=== PATIENT | female | born 1980 | race Caucasian/White ===

== ENCOUNTER → 2017-09-02 | Outpatient (CLI) | payer BC | LOC: WSo 11:41 | PROVIDERS: ATTEND Obstetrics & Gynecology | DX: Z31.82 Encounter for Rh incompatibility status (principal) | CPT/HCPCS: 96372 ==

== ENCOUNTER → 2017-11-08 | Outpatient (CLI) | payer BC | LOC: WSo 08:35 | PROVIDERS: ATTEND Obstetrics & Gynecology | DX: Z31.82 Encounter for Rh incompatibility status (principal) | CPT/HCPCS: 96372 ==

== ENCOUNTER 2018-01-05 11:02 | Inpatient (IN) | payer BC ==
[2018-01-05] VITALS (37 sets, daily range): BP systolic 109–130; BP diastolic 55–72
[~2018-01-05] VITALS: Ht 170.2 cm; Wt 92.1 kg
[2018-01-05] MEDS ORDERED: MINERAL OIL CONCENTRATE 99.9% 15 ML UDC TOP PRN (11:15)
[2018-01-05] MEDS: D5 LR IV SOLUTION 1,000 ML IV SCH ×2 (12:10→18:35)
--- OUTSIDE RECORDS SUMMARY | 2018-01-05 12:17 | XMS REPORT ---
Author Author AJIT PABLO Organization [facility] Address [address] [place] [address] Care Team Providers Care [employer] Name Role Phone AJIT PABLO Unavailable PROBLEMS Type Condition ICD9-CM Code ZQH85-DD Code Onset Dates Condition Status SNOMED Code Problem Pain in joint, lower leg 719.46 Active 470133532 ALLERGIES Substance Reaction Event Type Date Status Macrobid Unknown Drug Allergy Mar, Active SOCIAL HISTORY Never Assessed PLAN OF CARE Activity Details Follow Up TE- #15 Reason: VITAL SIGNS MEDICATIONS Medication Instructions Dosage Frequency Start Date End Date Duration Status Booker 5-325 MG Orally every 6 hours 1 tablet as needed 6h Mar, 3 days Active Amoxicillin Active Amoxicillin 500 MG Orally every 8 hrs 1 capsule 8h Mar, 10 day( s) Active RESULTS No Results PROCEDURES Procedure Date Ordered Result Body Site LTD ORAL EVALUATION - PROBLEM FOCUS Apr 02, 2016 INTRAORL-PERIAPICAL 1 FILM [id number] Apr 02, 2016 IMMUNIZATIONS No Known Immunizations
--- OUTSIDE RECORDS SUMMARY | 2018-01-05 12:17 | XMS REPORT ---
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 Name Role Phone ORLANDO COWAN Unavailable PROBLEMS Type Condition ICD9-CM Code [id number] Code Onset Dates Condition Status SNOMED Code Problem Pain in joint, lower leg 719.46 Active 458522225 ALLERGIES Substance Reaction Event Type Date Status Macrobid Unknown Drug Allergy Nov, Active ENCOUNTERS Encounter Location Date Diagnosis [facility] [id number] [place] [phone] Jan, Hordeolum externum of right upper eyelid H00.011 [facility] [id number] [place] [address] [phone] Nov, Subacute frontal sinusitis J01.10 and Spasmodic cough R05 [facility] [id number] [place] [address] [phone] Mar, Dental caries K02.9 [facility] [id number] [place] [address] [phone] Mar, Dental examination Z01.20 [facility] [id number] [place] [phone] May, [facility] [id number] [place] [phone] Dec, [facility] [id number] [place] [phone] Dec, IMMUNIZATIONS No Known Immunizations SOCIAL HISTORY Never Assessed REASON FOR VISIT Pt c/o sinus congestion, drainage [place] PLAN OF CARE Activity Details Follow Up prn Reason: VITAL SIGNS Height 67.75 in 2016-12-17 Weight 216.6 lbs 2016-12-17 Temperature 98.3 degrees Fahrenheit 2016-12-17 Heart Rate 90 bpm 2016-12-17 Respiratory Rate 16 2016-12-17 BMI 33.17 kg/m2 2016-12-17 Blood pressure systolic 142 mmHg 2016-12-17 Blood pressure diastolic 80 mmHg 2016-12-17 MEDICATIONS Medication Instructions Dosage Frequency Start Date End Date Duration Status Zithromax Z-Gerber 250 MG Orally Once a day 2 tablets on the first day, then 1 tablet daily for 4 days 24h Nov, Nov, 5 day(s) Active PredniSONE 10 mg Orally Once a day 1 tablet 24h Nov, Nov, 05 days Active RESULTS No Results PROCEDURES No Known procedures INSTRUCTIONS MEDICATIONS ADMINISTERED No Known Medications
--- OUTSIDE RECORDS SUMMARY | 2018-01-05 12:17 | XMS REPORT ---
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 Name Role Phone ELEUTERIO MARCELA Unavailable PROBLEMS Type Condition ICD9-CM Code XLA31-MD Code Onset Dates Condition Status SNOMED Code Problem Pain in joint, lower leg 719.46 Active [id number] ALLERGIES Substance Reaction Event Type Date Status Macrobid Unknown Drug Allergy Jan, Active ENCOUNTERS Encounter Location Date Diagnosis [facility] [address] [place] [phone] Jan, Hordeolum externum of right upper eyelid H00.011 [facility] [id number] [place] [phone] Nov, Subacute frontal sinusitis J01.10 and Spasmodic cough R05 [facility] [id number] [place] [phone] Mar, Dental caries K02.9 [facility] [id number] [place] [phone] Mar, Dental examination Z01.20 [facility] [address] [place] [address] [phone] May, [facility] [address] [id number] [phone] Dec, [facility] [id number] [place] [address] [phone] Dec, IMMUNIZATIONS No Known Immunizations SOCIAL HISTORY Never Assessed REASON FOR VISIT reports sty in her eye for 2 days. put heat on her right eye last noc...reports its worse now. red and swollen...slight pain...not bad. [email or web address] PLAN OF CARE Activity Details Follow Up prn Reason: VITAL SIGNS Height 67.75 in 2017-01-23 Weight 215.2 lbs 2017-01-23 Temperature 98.0 degrees Fahrenheit 2017-01-23 Heart Rate 84 bpm 2017-01-23 Respiratory Rate 20 2017-01-23 BMI 32.96 kg/m2 2017-01-23 Blood pressure systolic 136 mmHg 2017-01-23 Blood pressure diastolic 80 mmHg 2017-01-23 MEDICATIONS Medication Instructions Dosage Frequency Start Date End Date Duration Status Multi Vitamin - Orally Once a day 1 tablet 24h Active RESULTS No Results PROCEDURES No Known procedures INSTRUCTIONS MEDICATIONS ADMINISTERED No Known Medications
--- OUTSIDE RECORDS SUMMARY | 2018-01-05 12:17 | XMS REPORT ---
Author Author AJIT PABLO Organization [facility] Address [address] [place] [address] Care Team Providers Care Imaging Services Director Name Role Phone AJIT PABLO Unavailable PROBLEMS Type Condition ICD9-CM Code PCF96-NR Code Onset Dates Condition Status SNOMED Code Problem Pain in joint, lower leg 719.46 Active 716425001 ALLERGIES Substance Reaction Event Type Date Status Macrobid Unknown Drug Allergy Mar, Active SOCIAL HISTORY Never Assessed PLAN OF CARE Activity Details Follow Up prn Reason:Exam/radiographs VITAL SIGNS Blood pressure systolic 137 mmHg 2016-04-11 Blood pressure diastolic 91 mmHg 2016-04-11 MEDICATIONS Medication Instructions Dosage Frequency Start Date End Date Duration Status [place] 7.5-325 MG Orally every 6 hrs 1 tablet as needed 6h Mar, Mar, 4 days Active Amoxicillin 500 MG Orally every 8 hrs 1 capsule 8h Mar, Mar, 7 days Active Metronidazole 500 MG Orally Twice a day 1 tablet 12h Mar, Mar, 5 days Active RESULTS No Results PROCEDURES Procedure Date Ordered Result Body Site SURG REMOVAL ERUPTED TOOTH Apr 11, 2016 IMMUNIZATIONS No Known Immunizations
--- OUTSIDE RECORDS SUMMARY | 2018-01-05 12:18 | XMS REPORT | Continuity of Care Document ---
Author Author [facility] Address Unknown Phone Unavailable Allergies Active Description Code Type Severity Reaction Onset Reported/Identified Relationship to Patient Clinical Status Yes No Known Drug Allergies [id number] Drug Allergy Unknown N/A 01/05/2018 Medications There is no data. Problems Date Dx Coded Attending Type Code Diagnosis Diagnosed By 09/03/2017 JAQUELINE GODDARD MD, Ot Z31.82 ENCOUNTER FOR RH INCOMPATIBILITY STATUS 09/16/2017 JAQUELINE GODDARD MD, Ot Z31.82 ENCOUNTER FOR RH INCOMPATIBILITY STATUS 10/23/2017 JAQUELINE GODDARD MD, Ot Z31.82 ENCOUNTER FOR RH INCOMPATIBILITY STATUS 11/10/2017 JAQUELINE GODDARD MD, Ot Z31.82 ENCOUNTER FOR RH INCOMPATIBILITY STATUS 11/25/2017 JAQUELINE GODDARD MD, Ot Z31.82 ENCOUNTER FOR RH INCOMPATIBILITY STATUS 12/23/2017 JAQUELINE GODDARD MD, Ot Z31.82 ENCOUNTER FOR RH INCOMPATIBILITY STATUS Procedures There is no data. Results Test Result Range RH IMMUNE GLOBULIN RHOPHYLAC - 09/02/17 12:09 RH IMMUNE GLOBULIN RHOPHYLAC PRSMD TRFSD 09/02/17 1225 NRG [id number] - 09/02/17 12:09 [id number] 300ug NRG Lot number - 09/02/17 12:09 Lot number [id number] NRG cell screen - 09/02/17 12:09 cell screen 02/09/19 NRG RH IMMUNE GLOBULIN RHOPHYLAC - 11/08/17 08:50 RH IMMUNE GLOBULIN RHOPHYLAC PRSMD TRFSD 11/08/17 0909 NRG [id number] - 11/08/17 08:50 [id number] 300ug NRG Lot number - 11/08/17 08:50 Lot number [id number] NRG cell screen - 11/08/17 08:50 cell screen 12/12/19 NRG Encounters ACCT No. Visit Date/Time Discharge Status Pt. Type Provider Facility Loc./Unit Complaint [id number] 10/02/2014 21:33:50 10/02/2014 23:59:59 CLS Outpatient Gary Finn [id number] 01/23/2017 09:50:00 01/23/2017 23:59:59 CLS Outpatient BRIAN KNOWLES APRN [facility] [id number] 11/08/2017 08:35:00 11/08/2017 23:59:59 CLS Outpatient JAQUELINE GODDARD MD [facility] RH NEGATIVE [id number] 09/02/2017 11:41:00 09/02/2017 23:59:59 CLS Outpatient JAQUELINE GODDARD MD [facility] RH NEGATIVE [id number] 01/05/2018 11:02:00 ACT Inpatient JAQUELINE GODDARD MD [facility] LDRP LABOR
[2018-01-05 12:26] LABS: BASOPHILS % (AUTO) 0 % (0-10); EOSINOPHILS % (AUTO) 0 % (0-10); HEMATOCRIT 34 % (35-52); HEMOGLOBIN 11.4 G/DL (11.5-16.0); LYMPHOCYTES # (AUTO) 2.1 X 10^3 (1.0-4.0); LYMPHOCYTES % (AUTO) 20 % (12-44); MEAN CORPUSCULAR HEMOGLOBIN 31 PG (25-34); MEAN CORPUSCULAR HGB CONC 34 G/DL (32-36); MEAN CORPUSCULAR VOLUME 90 FL (80-99); MEAN PLATELET VOLUME 12.9 FL (7.4-10.4); MONOCYTES # (AUTO) 0.5 X 10^3 (0.0-1.0); MONOCYTES % (AUTO) 5 % (0-12); NEUTROPHILS # (AUTO) 7.5 X 10^3 (1.8-7.8); NEUTROPHILS % (AUTO) 74 % (42-75); PLATELET COUNT 130 10^3/uL (130-400); RED BLOOD COUNT 3.73 10^6/uL (4.35-5.85); RED CELL DISTRIBUTION WIDTH 13.8 % (10.0-14.5); WHITE BLOOD COUNT 10.1 10^3/uL (4.3-11.0)
[2018-01-05] MEDS ORDERED: BUPIVACAINE 0.25% 30 ML (SENSORCAINE) VIAL ONE (12:40)
[2018-01-05] MEDS ORDERED: fentaNYL INJECTION 100 MCG/2 ML AMP ONE (12:40)
[2018-01-05] MEDS ORDERED: LIDOCAINE PF 2% 5 ML (XYLOCAINE) VIAL ONE (12:40)
--- NOTE | 2018-01-05 12:40 | History & Physical ---
History and Physical Date Seen by Provider: Jan 05, 2018 Time Seen by Provider: 12:34 This patient is a 37-year-old G2 and white female with a due date of complaining her now at 3717 weeks gestation. She was seen on this date in clinic with complaint of contractions pain and pressure. She was seen yesterday and had a platelet count of 126,000. She has historically had low platelet count. She reports that her platelet count typically dropped precipitously at the end of her . She had an abnormal tetra test with the DSR of 1/192. Amniocentesis was performed with findings of 46 XX. Patient understands that she is at increased risk for complications overall because of her advanced maternal age. She is Rh- and ahead of the serosa exam at around 28 weeks gestation. She feels like she may be leaking fluid. GBS culture done on December 22, 2018 was negative. Physical profile on this date at a value of 5 out of 8 with 0 for breathing movement and 1 for motion. She also has an SHERRELL of 72. She is sent to labor and delivery from my office for labor induction and delivery. Allergies are to Macrobid which causes a rash Medications are vitamins Past medical history, past surgical history, obstetric history, family history, social history operative record HEENT exam is normal Neck supple with no lymphadenopathy in the thyromegaly Abdomen gravid soft nontender nondistended Extremities show no clubbing or cyanosis. There is no Homans sign. Pelvic exam reveals a somewhat gaping introitus with a cervix that is recently dilated more than 50 percent effaced and the vertex at the 0 to -1 station vertex with uncertain intact membranes. Amniotomy was performed with release of a small amount of fluid. Laboratory Tests 01/05/18 11:45 Assessment and plan term at 37 1 6/7 weeks' gestation in a patient with advanced maternal age, abnormal tetra test result with an increased DSR, normal amniocentesis 46 XX, oligohydramnios, suspicious testing with biophysical profile of 5/8, possible leaking of amniotic fluid, and with thrombocytopenia. Patient is admitted she will have an epidural shortly. Plan induction with Pitocin. Amniotomy has been performed. We anticipate a vaginal 37 week with oligohydramnios abnormal tetra test advanced maternal age and thrombocytopenia Allergies and Home Medications Allergies Coded Allergies: No Known Drug Allergies (Unverified , 01/05/18) Patient Home Medication List Home Medication List Reviewed: Yes JAQUELINE GODDARD MD Jan 05, 2018 12:40 pm
[2018-01-05] MEDS ORDERED: OXYTOCIN/NORMAL SALINE 500 ML IV SCH ×2 (12:41→19:35)
[2018-01-05] MEDS ORDERED: OXYTOCIN/NORMAL SALINE 500 ML IV ONE (12:43)
[2018-01-05] MEDS ORDERED: SUFENTA 0.6MCG/ML BUPIVA 0.125 100 ML ONE (12:43)
[2018-01-05] MEDS ORDERED: LIDOCAINE/EPI 2% 1:200,00 (XYLOCAINE) 10 ML VIAL ONE (12:43)
[2018-01-05] MEDS ORDERED: IBUP-1780 PO (12:46)
[2018-01-05] MEDS ORDERED: DOCU-143 PO (12:46)
[2018-01-05] MEDS ORDERED: OXYC1TAB87 PO (12:46)
--- NOTE | 2018-01-05 12:49 | Discharge Instructions ---
Discharge Instructions Discharge Medications New, Converted or Re-Newed RX: RX on Chart Patient Instructions Patient Instructions: As directed Return to The Hospital For: As directed Activity & Diet Discharge Diet: No Restrictions Activity as Tolerated: No Orders-Post D/C & Referrals Follow Up Appt: Call to make follow up appt. for patient in 4 weeks. Activity Per routine post vaginal delivery instructions. Diet as tolerated Patient may shower or tub bathe as desired. JAQUELINE GODDARD MD Jan 05, 2018 12:49 pm
[2018-01-05] MEDS ORDERED: LACTATED RINGERS 1,000 ML IV ONE (13:39)
[2018-01-05] MEDS ORDERED: CATHETER FLUSH 10 ML SYR IV PRN (13:45)
[2018-01-05] MEDS ORDERED: EPIDURAL (SUFENTA 0.6MCG/ML BUPIVA 0.125%) 100 ML BAG EPI SCH (13:45)
[2018-01-05] MEDS ORDERED: NALOXONE 0.4 MG/ML 1 ML (NARCAN) VIAL IV PRN (13:45)
[2018-01-05] MEDS ORDERED: ONDANSETRON 4 MG/2 ML (SDV) Z0FRAN IV PRN (13:45)
[2018-01-05] MEDS ORDERED: diphenhydrAMINE 50 MG/ML INJ (BENADRYL) IV PRN (13:45)
[2018-01-05] MEDS: CATHETER FLUSH 10 ML SYR IV SCH (14:40)
[2018-01-05] MEDS ORDERED: LIDOCAINE/EPI 2% 1:200,00 (XYLOCAINE) 10 ML VIAL INJ NR (18:00)
[2018-01-05] MEDS ORDERED: FLU QUADRIvalent (5+ YOA) 2018-2019 (AFLURIA) 0.5 ML IM ONE (19:00)
[2018-01-05] MEDS ORDERED: TETANUS,DIPTH,PERTUSS P/F (BOOSTRIX) 0.5 ML VIAL IM ONE (19:45)
[2018-01-05] MEDS ORDERED: oxyCODONE/APAP 5/325MG (PERCOCET 5) TABLET PO PRN (19:45)
[2018-01-05] MEDS ORDERED: MEASLES,MUMPS,RUBELLA 1 EA INJ SC ONE (19:45)
[2018-01-05] MEDS ORDERED: ONDANSETRON 4 MG/2 ML (SDV) Z0FRAN IVP PRN (19:45)
[2018-01-05] MEDS ORDERED: BENZOCAINE/MENTHOL (DERMOPLAST) 56 ML CAN TP PRN (19:45)
[2018-01-05] MEDS: KETOROLAC 30 MG/ML VIAL IV SCH (20:59)
[2018-01-05] MEDS: DOCUSATE SODIUM 100 MG (COLACE) CAP PO SCH (20:59)
--- NOTE | 2018-01-05 21:01 | OPERATIVE REPORT ---
DATE OF SERVICE: 01/05/2018 DELIVERY NOTE The patient delivered by term spontaneous vaginal delivery at 37 and 1/7 weeks' gestation, a viable female infant with Apgars of 8 and 9 at 1 and 5 minutes respectively, weight of 6 pounds and 9 ounces. time of 1916. Cord blood pH is pending. The was delivered over an intact perineum under epidural analgesia. The infant was bulb suctioned on delivery of the head. A single nuchal cord was easily released. The delivery was completed atraumatically and the infant bulb suctioned, dried, and stimulated. When the cord was pulseless, it was doubly clamped. The patient's daughter cut the cord and the baby was passed to mom's abdomen. The had spontaneous cry, moved all extremities, had excellent tone and reflexes and was quite quickly pink on delivery. The cord bloods were obtained. The placenta delivered spontaneously [place]. It was normal with a 3-vessel cord. The cervix, vagina, rectum and perineum were examined and found intact. There were a couple of small abrasion in the posterior fourchette and on the anterior aspect of the labia minora more so on the left than on the right, but these were hemostatic and required no repair as they were again just superficial abrasions. The estimated blood loss for delivery was less than 150 mL. Sponge and needle counts were correct on completion of delivery. The infant remained in the LDR with the mom for recovery. The mom remained in the LDR for recovery. Job ID: [id number] DocumentID: [id number] Dictated Date: 01/05/2018 19:31:37 Home Health Aid Date: 01/05/2018 21:01:20 Dictated By: JAQUELINE GODDARD MD MTDD
[2018-01-06 02:50] VITALS: BP 99/55
[2018-01-06] MEDS: KETOROLAC 30 MG/ML VIAL IV SCH (02:52)
[2018-01-06 05:50] VITALS: BP 105/63
[2018-01-06] MEDS: CATHETER FLUSH 10 ML SYR IV SCH (06:10)
[2018-01-06] MEDS ORDERED: IBUPROFEN 800 MG (MOTRIN) TAB PO ONE ×2 (08:30→15:22)
[2018-01-06 09:00] VITALS: BP 111/52
[2018-01-06] MEDS: DOCUSATE SODIUM 100 MG (COLACE) CAP PO SCH ×2 (09:00→21:09)
[2018-01-06] MEDS: IBUPROFEN 800 MG (MOTRIN) TAB PO SCH ×3 (09:00→21:10)
--- NOTE | 2018-01-06 10:44 | Anesthesia-Regional Post-Op ---
Regional Patient Condition Mental Status: Alert, Oriented x3 Circulation: Same as Pre-Op Headache: Absent Sensation: Full Recovery Motor Block: Absent Post Op Complications Complications None Follow Up Care/Instructions Patient Instructions None needed. Anesthesia/Patient Condition Patient is doing well, no complaints, stable vital signs, no apparent adverse anesthesia problems. No complications reported per nursing. ALEYDA OWENS CRNA Jan 06, 2018 10:44
--- NOTE | 2018-01-06 14:48 | Progress Note-Standard ---
Standard Progress Note Progress Notes/Assess & Plan Date Seen by a Provider: Jan 06, 2018 Time Seen by a Provider: 08:00 Progress/Assessment & Plan This patient is without complaint. She is ambulating, voiding, tolerating oral intake well has good pain control. Patient denies chest pain, denies shortness of breath, denies headache, denies nausea or vomiting. Vital Signs 01/06/18 09:00 Temp 98.4 Pulse 68 Resp 16 B/P (MAP) 111/52 (71) Pulse Ox 97 O2 Delivery Room Air Vital signs are stable. Patient is afebrile. Fundus is firm below the umbilicus and nontender. Extreme show no clubbing cyanosis. There is no Homans sign. Assessment and plan day number 1 status post term spontaneous vaginal delivery at 37-1/7 weeks gestation. Patient is doing well will have routine convalescence care today and likely discharge home tomorrow. JAQUELINE GODDARD MD Jan 06, 2018 2:48 pm
[2018-01-06 15:25] VITALS: BP 107/63
[2018-01-06 20:00] VITALS: BP 110/67
[2018-01-07 02:44] VITALS: BP 106/64
[2018-01-07] MEDS: IBUPROFEN 800 MG (MOTRIN) TAB PO SCH ×2 (02:44→08:48)
--- NOTE | 2018-01-07 08:08 | Progress Note-Standard ---
Standard Progress Note Progress Notes/Assess & Plan Date Seen by a Provider: Jan 07, 2018 Time Seen by a Provider: 08:07 Progress/Assessment & Plan This patient is without complaint. She is ambulating, voiding, tolerating oral intake well has good pain control. Patient denies chest pain, denies shortness of breath, denies headache, denies nausea or vomiting. Vital Signs 01/06/18 09:00 Temp 98.4 Pulse 68 Resp 16 B/P (MAP) 111/52 (71) Pulse Ox 97 O2 Delivery Room Air Vital signs are stable. Patient is afebrile. Fundus is firm below the umbilicus and nontender. Extreme show no clubbing cyanosis. There is no Homans sign. Assessment and plan day number 1 status post term spontaneous vaginal delivery at 37-1/7 weeks gestation. Patient is doing well will have routine convalescence care today and likely discharge home tomorrow. January 07, 2018 Patient without complaint. She is ambulating, voiding, tolerating oral intake well has good pain control and is requesting discharge home. Vital Signs 01/07/18 02:44 Temp 98.9 Pulse 73 Resp 18 B/P (MAP) 106/64 (78) Pulse Ox 98 O2 Delivery Room Air Vital signs are stable. Patient is afebrile. Fundus is firm below the umbilicus and nontender. Extremities show no clubbing cyanosis. There is no Homans sign. Assessment and plan day number 2 status post term spontaneous vaginal delivery at 37 1/7 weeks gestation doing well. Plan is for discharge home. Final Diagnosis 37-1/7 week spontaneous vaginal delivery JAQUELINE GODDARD MD Jan 07, 2018 8:08 am
[2018-01-07 08:45] VITALS: BP 118/6
[2018-01-07] MEDS: DOCUSATE SODIUM 100 MG (COLACE) CAP PO SCH (08:48)
[2018-01-07] MEDS ORDERED: TETANUS,DIPTH,PERTUSS P/F (BOOSTRIX) 0.5 ML VIAL IM ONE (09:35)
[2018-01-07] MEDS: FLU QUADRIvalent (5+ YOA) 2018-2019 (AFLURIA) 0.5 ML IM ONE (09:40)
[2018-01-07] MEDS ORDERED: FLU QUADRIvalent (5+ YOA) 2018-2019 (AFLURIA) 0.5 ML IM ONE (11:15)
== END 2018-01-07 12:35 | disposition home or self-care (01) | DRG 806 ==
LOC: LDRP 11:02
PROVIDERS: ADMIT Obstetrics & Gynecology; ATTEND Obstetrics & Gynecology
PROC: 10E0XZZ Delivery of Products of Conception, External Approach (ICD-10-PCS; principal; 2018-01-05)
DX: O41.03X0 Oligohydramnios, third trimester, not applicable or unspecified (principal); O99.12 Other diseases of the blood and blood-forming organs and certain disorders involving the immune mechanism complicating childbirth; D69.6 Thrombocytopenia, unspecified; O69.81X0 Labor and delivery complicated by cord around neck, without compression, not applicable or unspecified; Z37.0 Single live birth; Z3A.37 37 weeks gestation of pregnancy
CPT/HCPCS: 36415; 83033; 85025; 86850; 86900; 86901; 88307; 90686; 90715

== ENCOUNTER 2018-12-17 12:06 | Day surgery (SDC) | payer BC ==
[~2018-12-17] VITALS: Ht 172.7 cm; Wt 91.7 kg
[2018-12-17] VITALS (11 sets, daily range): BP systolic 103–118; BP diastolic 63–80
[~2018-12-17 12:06] MED LIST: DOCU-143 PO; IBUP-1780 PO; OXYC1TAB87 PO
[2018-12-17] MEDS ORDERED: D5 LR IV SOLUTION 1,000 ML IV SCH (12:19)
--- NOTE | 2018-12-17 12:19 | Progress Note-Post Operative ---
Post-Operative Progess Note Surgeon (s)/Counterperson (s) Surgeon JAQUELINE GODDARD MD Counterperson: None Pre-Operative Diagnosis 14 week demise Post-Operative Diagnosis Same with pathology pending Procedure & Operative Findings Date of Procedure 12/17/18 Procedure Performed/Findings D and E for 14 week demise Anesthesia Type GETA Estimated Blood Loss Estimated blood loss (mL): 1000cc Specimens/Packing Specimens Removed Uterine contents/products of conception JAQUELINE GODDARD MD Dec 17, 2018 12:19
--- NOTE | 2018-12-17 12:19 | Progress Note-Pre Operative ---
Pre-Operative Progress Note H&P Reviewed The H&P was reviewed, patient examined and no changes noted. Date Seen by Provider: Dec 17, 2018 Time Seen by Provider: 12:18 Date H&P Reviewed: Dec 17, 2018 Time H&P Reviewed: 12:18 Pre-Operative Diagnosis: 14 week demise JAQUELINE GODDARD MD Dec 17, 2018 12:19
[2018-12-17] MEDS ORDERED: IBUP-1780 PO (12:21)
[2018-12-17] MEDS ORDERED: DOCU-143 PO (12:21)
[2018-12-17] MEDS ORDERED: OXYC1TAB87 PO (12:21)
--- NOTE | 2018-12-17 12:22 | Discharge Instructions ---
Discharge Instructions Discharge Medications New, Converted or Re-Newed RX: RX on Chart Patient Instructions Return to The Hospital For: As directed Activity & Diet Discharge Diet: No Restrictions Activity as Tolerated: No Orders-Post D/C & Referrals Follow Up Appt: Call to make follow up appt. for patient in 2 weeks. Activity: Rest for 24 hours, than as tolerated. Please call in RX to patient pharmacy. Diet: As tolerated-Clear Liquids only if nauseated. shower or tub bathe as desired. No driving for 24 hours, no alcoholic beverages for 24 hours, and nothing per vagina (no tampons, douching, or intercourse) for 2 weeks. Patient to return to the clinic as soon as possible for: Temperature greater than 101F, Severe Pain, Foul discharge from incision or vagina, Excessive Bleeding (more than a period). JAQUELINE GODDARD MD Dec 17, 2018 12:22
[2018-12-17] MEDS ORDERED: MEPERIDINE (DEMEROL) INJ 100 MG/ML IM ONE (12:30)
[2018-12-17] MEDS ORDERED: PROMETHAZINE INJ 25 MG/ML (PHENERGAN) AMP IM ONE (12:30)
[2018-12-17] MEDS ORDERED: KETOROLAC 30 MG/ML VIAL IVP ONE (12:30)
[2018-12-17] MEDS ORDERED: oxyCODONE/APAP 5/325MG (PERCOCET 5) TABLET PO PRN (12:30)
[2018-12-17] MEDS ORDERED: ONDANSETRON 4 MG/2 ML (SDV) Z0FRAN IVP PRN ×2 (12:30→14:15)
[2018-12-17 12:43] LABS: BASOPHILS % (AUTO) 0 % (0-10); EOSINOPHILS # (AUTO) 0.1 10^3/uL (0.0-0.3); EOSINOPHILS % (AUTO) 1 % (0-10); HEMATOCRIT 40 % (35-52); HEMOGLOBIN 13.4 G/DL (11.5-16.0); LYMPHOCYTES # (AUTO) 1.8 X 10^3 (1.0-4.0); LYMPHOCYTES % (AUTO) 28 % (12-44); MEAN CORPUSCULAR HEMOGLOBIN 29 PG (25-34); MEAN CORPUSCULAR HGB CONC 34 G/DL (32-36); MEAN CORPUSCULAR VOLUME 86 FL (80-99); MEAN PLATELET VOLUME 12.8 FL (7.4-10.4); MONOCYTES # (AUTO) 0.3 X 10^3 (0.0-1.0); MONOCYTES % (AUTO) 5 % (0-12); NEUTROPHILS # (AUTO) 4.4 X 10^3 (1.8-7.8); NEUTROPHILS % (AUTO) 66 % (42-75); PLATELET COUNT 128 10^3/uL (130-400); RED CELL DISTRIBUTION WIDTH 12.9 % (10.0-14.5); WHITE BLOOD COUNT 6.6 10^3/uL (4.3-11.0)
[2018-12-17] MEDS ORDERED: ceFAZolin INJECTION 1,000 MG ONE (12:45)
[2018-12-17] MEDS ORDERED: MIDAZOLAM 2 MG/2 ML (VERSED) VIAL ONE (12:46)
[2018-12-17] MEDS ORDERED: fentaNYL INJECTION 100 MCG/2 ML AMP ONE (12:47)
[2018-12-17] MEDS ORDERED: ONDANSETRON 4 MG/2 ML (SDV) Z0FRAN ONE (14:03)
[2018-12-17] MEDS ORDERED: LIDOCAINE PF 2% 5 ML (XYLOCAINE) VIAL ONE (14:03)
[2018-12-17] MEDS ORDERED: proPOfol 200 MG/20 ML (DIPRIVAN) VIAL IV ONE (14:03)
[2018-12-17] MEDS ORDERED: SEVOFLURANE (ULTANE) 15 ML INHAL SOLN ONE (14:08)
[2018-12-17] MEDS ORDERED: MEPERIDINE (DEMEROL) INJ 50 MG/ML IVP ONE (14:15)
[2018-12-17] MEDS ORDERED: morphine INJ 10 MG/ML 1ML (SYR OR VIAL) IVP ONE (14:15)
[2018-12-17] MEDS ORDERED: fentaNYL INJECTION 100 MCG/2 ML AMP IVP ONE (14:15)
[2018-12-17] MEDS ORDERED: ceFAZolin INJECTION 1,000 MG in WATER (STERILE) FOR INJECTION 10 ML IV ONE (14:30)
[2018-12-17] MEDS ORDERED: LACTATED RINGERS 1,000 ML IV ONE (14:48)
--- NOTE | 2018-12-17 17:49 | Diagnostic Imaging Report ---
INDICATION: demise. FINDINGS: Sonographic guidance was provided for Dr. Cornejo during D&C. IMPRESSION: Sonographic guidance for D&C. Dictated by: Dictated on workstation # [id number]
--- NOTE | 2018-12-17 20:48 | OPERATIVE REPORT ---
DATE OF SERVICE: 12/17/2018 PREOPERATIVE DIAGNOSIS: A 14-week intrauterine demise. POSTOPERATIVE DIAGNOSIS: A 14-week intrauterine demise. OPERATIVE PROCEDURE: D and E for a 14-week demise. OPERATIVE DESCRIPTION: With the patient in supine position under satisfactory general anesthesia, she was repositioned in dorsal lithotomy position in the [facility] and prepped and draped in the usual fashion for vaginal surgery. The urinary bladder was drained with a straight catheter. A weighted speculum was placed in the posterior fornix of vagina. The cervix was exposed and grasped anteriorly with single tooth tenaculum. The cervix was sounded to 16 cm with uterine sound. The cervix was then serially dilated with Micheal dilators and then finally with Hegar dilators to a #18 Edgar. Ring forceps were used to explore the uterine cavity and extract the fetus, which came out in fragments and pieces. The placenta was removed in several fragments as well. The parts were identified as they removed both lower extremities, the thorax and one upper extremity was clearly identified. The other extremity was either picked up with the vacuum or was somewhat macerated. There was a piece of tissue obtained that would be consistent with the other extremity. The uterine cavity was explored for the remaining portion of the fetus, which was a calvarium, it could not be located manually and ultrasound was then used transabdominally to locate the calvarium, which was then grasped fairly easily with ring clamps through the cervix. The calvarium was removed intact. This accounted for essentially all of the parts. The endometrial cavity was then suction curettaged to a good uterine cry with removal of a fairly notable amount of blood clot, tissue, placental tissue, membranes, amniotic fluid and debris. The endometrial cavity was then suction curettaged a final time to remove all blood clot and debris. Repeat transabdominal ultrasound showed an empty uterine cavity with no evidence of retained parts, no significant tissue and no debris or blood. At this point, the procedure was terminated. Estimated blood loss for the procedure was a liter. The patient after removal of the tenaculum from the cervix, there was no bleeding from that puncture site. There was no bleeding from the cervical os. The uterus had contracted nicely once the procedure was complete. With sponge, needle counts correct, hemostasis assured and the entire parts accounted for the procedure was terminated. The patient was now uneventfully awakened from her general anesthesia and transferred to recovery room in stable condition with plans for discharge home PAR. Again, sponge and needle counts were correct. Blood loss was around 1000 mL. Job ID: [id number] DocumentID: [id number] Dictated Date: 12/17/2018 18:06:12 Nematology Teacher Date: 12/17/2018 20:47:03 Dictated By: JAQUELINE GODDARD MD
== END 2018-12-17 16:20 | disposition home or self-care (01) ==
LOC: SDC 12:06
PROVIDERS: ATTEND Obstetrics & Gynecology
DX: O02.1 Missed abortion (principal); Z88.1 Allergy status to other antibiotic agents
CPT/HCPCS: 36415; 76857; 85025; 86850; 86900; 86901; 87081

== ENCOUNTER → 2020-05-18 | Outpatient (CLI) | payer BC | LOC: LABNPT 11:03 | PROVIDERS: ATTEND Obstetrics & Gynecology | DX: R80.9 Proteinuria, unspecified (principal) | CPT/HCPCS: 82570; 84156 ==

== ENCOUNTER → 2020-06-19 | Outpatient (CLI) | payer BC | LOC: LABNPT 09:53 | PROVIDERS: ATTEND Obstetrics & Gynecology | DX: O09.529 Supervision of elderly multigravida, unspecified trimester (principal); Z3A.00 Weeks of gestation of pregnancy not specified | CPT/HCPCS: 82570; 84156 ==

== ENCOUNTER 2020-06-27 11:44 | Outpatient (CLI) | payer BC ==
[~2020-06-27] VITALS: Ht 172.7 cm; Wt 97.1 kg
[2020-06-27 11:58] VITALS: BP 135/69
[2020-06-27 12:09] VITALS: BP 135/69
[2020-06-27] MEDS ORDERED: PREN1TAB79 PO (12:13)
[2020-06-27 12:30] VITALS: BP 118/67
[2020-06-27 13:00] VITALS: BP 116/57
--- NOTE | 2020-06-28 07:33 | Physician Query-Final Dx ---
NILO LUNA 06/28/20 0733: Clinic Account Progress/Dx Physician Query: Please give diagnosis Please include # weeks gestation Date of Service June 27, 2020 at 11:44 JAQUELINE GODDARD MD 06/28/20 2144: Clinic Account Progress/Dx DIAGNOSIS: Diagnosis FALSE LABOR AT 37 WEEKS AMBER NILO LUNA June 28, 2020 07:33 JAQUELINE GODDARD MD June 28, 2020 21:44
== END 2020-06-27 13:20 | disposition home or self-care (01) ==
LOC: WSo 11:44 → LDRP 11:46 → WSo 13:20
PROVIDERS: ATTEND Obstetrics & Gynecology
DX: O26.893 Other specified pregnancy related conditions, third trimester (principal); Z3A.37 37 weeks gestation of pregnancy
CPT/HCPCS: 99213

== ENCOUNTER 2020-07-03 07:02 | Inpatient (IN) | payer BC ==
[~2020-07-03] VITALS: Ht 172.8 cm; Wt 97.1 kg
[2020-07-03] VITALS (45 sets, daily range): BP systolic 103–137; BP diastolic 51–75
[~2020-07-03 07:02] MED LIST changes: +PREN1TAB79 PO
[2020-07-03] MEDS ORDERED: D5 LR IV SOLUTION 1,000 ML IV ONE (07:03)
[2020-07-03] MEDS ORDERED: OXYTOCIN PRE-MIX DRIP 500 ML IV SCH ×2 (07:15→16:30)
[2020-07-03] MEDS ORDERED: D5 LR IV SOLUTION 1,000 ML IV SCH (07:15)
[2020-07-03 07:55] LABS: BASOPHILS % (AUTO) 0 % (0-10); EOSINOPHILS # (AUTO) 0.1 10^3/uL (0.0-0.3); EOSINOPHILS % (AUTO) 1 % (0-10); HEMATOCRIT 33 % (35-52); HEMOGLOBIN 10.8 g/dL (11.5-16.0); LYMPHOCYTES # (AUTO) 1.8 10^3/uL (1.0-4.0); LYMPHOCYTES % (AUTO) 22 % (12-44); MEAN CORPUSCULAR HEMOGLOBIN 29 pg (25-34); MEAN CORPUSCULAR HGB CONC 33 g/dL (32-36); MEAN CORPUSCULAR VOLUME 88 fL (80-99); MEAN PLATELET VOLUME 12.7 fL (9.0-12.2); MONOCYTES # (AUTO) 0.5 10^3/uL (0.0-1.0); MONOCYTES % (AUTO) 6 % (0-12); NEUTROPHILS # (AUTO) 5.7 10^3/uL (1.8-7.8); NEUTROPHILS % (AUTO) 71 % (42-75); PLATELET COUNT 139 10^3/uL (130-400); WHITE BLOOD COUNT 8.1 10^3/uL (4.3-11.0)
[2020-07-03] MEDS ORDERED: fentaNYL 2 mcg/ml BUPIVA 0.125 100 ML ONE (08:18)
[2020-07-03] MEDS ORDERED: BUPIVACAINE 0.25% 30 ML (SENSORCAINE) VIAL ONE (08:50)
[2020-07-03] MEDS ORDERED: fentaNYL INJ 100 MCG/2 ML AMP ONE (08:50)
[2020-07-03] MEDS ORDERED: NALOXONE 0.4 MG/ML 1 ML (NARCAN) VIAL IV PRN (09:00)
[2020-07-03] MEDS ORDERED: EPIDURAL (fentaNYL 2 MCG/ML BUPIVA 0.125%)100 ML BAG EPI PRN (09:00)
[2020-07-03] MEDS ORDERED: fentaNYL INJ 100 MCG/2 ML AMP INJ ONE (09:00)
[2020-07-03] MEDS ORDERED: ONDANSETRON 4 MG/2 ML (SDV) Z0FRAN IV PRN (09:00)
[2020-07-03] MEDS ORDERED: LACTATED RINGERS 1,000 ML IV ONE ×2 (09:00)
--- NOTE | 2020-07-03 10:12 | History & Physical ---
History and Physical Date Seen by Provider: July 03, 2020 Time Seen by Provider: 08:00 This patient is a 40-year-old 11 para 7 white female who presents at 38 weeks gestation with history of thrombocytopenia as well as mild polyhydramnios. She denies rupture membranes or bleeding. She has had no other problems with this . Her GBS culture was negative after 35 weeks gestation. She is admitted now for induction of labor. Allergies are to Macrobid Medications are vitamins Medical social and surgical history is all per the antepartum record HEENT exam is normal Neck is supple no lymphadenopathy no thyromegaly Abdomen is gravid soft nontender nondistended Extremities show no clubbing or cyanosis. There is no Homans' sign. Pelvic exam shows a cervix 3 cm dilated 50% effaced -1 station vertex presentation with intact membranes. Amniotomy was performed with release of clear fluid Laboratory Tests 07/03/20 07:35 Lab work is as noted. Platelet count is 139,000 which is mildly low Assessment and plan term at 38 weeks gestation with thrombocytopenia and a grand multipara at 40 years old. Patient is admitted for labor induction. We anticipate a vaginal delivery 38-week with thrombocytopenia Allergies and Home Medications Allergies Coded Allergies: nitrofurantoin (Verified Allergy, Intermediate, Rash, 12/17/18) Home Medications Vit W-Ca,Fe,FA(<1 mg) 1 Each Tablet, 1 TAB PO DAILY, (Reported) Patient Home Medication List Home Medication List Reviewed: Yes JAQUELINE GODDARD MD July 03, 2020 10:12
[2020-07-03] MEDS ORDERED: IBUP-1780 PO (10:13)
[2020-07-03] MEDS ORDERED: DOCU-143 PO (10:13)
[2020-07-03] MEDS ORDERED: OXYC1TAB87 PO (10:13)
--- NOTE | 2020-07-03 10:14 | Discharge Inst-Surgical ---
Discharge Inst-Surgical Depart Medication/Instructions New, Converted or Re-Newed RX: RX on Chart Consults/Follow Up Patient Instructions: As directed Orders & Referrals Follow Up Appt: Call to make follow up appt. for patient in 4 weeks. Activity Per routine post vaginal delivery instructions. Please call in RX to patient pharmacy. Diet as tolerated Patient may shower or tub bathe as desired. Activity Activity as Tolerated: No Diet Discharge Diet: No Restrictions JAQUELINE GODDARD MD July 03, 2020 10:14
[2020-07-03] MEDS ORDERED: LIDOCAINE/EPI 2% 1:200,00 (XYLOCAINE) 20 ML VIAL ONE (13:37)
[2020-07-03] MEDS ORDERED: KETOROLAC 30 MG/ML VIAL ONE (16:10)
[2020-07-03] MEDS: KETOROLAC 30 MG/ML VIAL IVP SCH ×2 (16:19→22:07)
[2020-07-03] MEDS ORDERED: MEASLES,MUMPS,RUBELLA 1 EA INJ SC ONE (16:30)
[2020-07-03] MEDS ORDERED: ONDANSETRON 4 MG/2 ML (SDV) Z0FRAN IVP PRN (16:30)
[2020-07-03] MEDS ORDERED: TETANUS,DIPTH,PERTUSS P/F (BOOSTRIX) 0.5 ML VIAL IM ONE (16:30)
[2020-07-03] MEDS ORDERED: BENZOCAINE/MENTHOL (DERMOPLAST) 56 ML CAN TP PRN (16:30)
[2020-07-03] MEDS ORDERED: oxyCODONE/APAP 5/325MG (PERCOCET 5) TABLET PO PRN (16:30)
[2020-07-03] MEDS ORDERED: WITCH HAZEL(TUCKS) 40 EA JAR ONE (17:44)
[2020-07-03] MEDS: DOCUSATE SODIUM 100 MG (COLACE) CAP PO SCH (22:07)
--- NOTE | 2020-07-03 23:36 | OPERATIVE REPORT ---
DATE OF SERVICE: 07/03/2020 DELIVERY NOTE The patient delivered by term spontaneous vaginal delivery a viable female infant with Apgars of 8 and 9 at 1 and 5 minutes respectively, weight of 7 pounds 4 ounces, time of 1354 and a cord blood pH that is pending. The infant was delivered over an intact perineum under epidural analgesia. There was a relatively tight nuchal cord that was eventually released and then the delivery completed. The infant was bulb suctioned on delivery of the head and again on completion of delivery. The umbilical cord was doubly clamped, when pulseless, the father cut the cord, the baby was passed to mom's abdomen. Cord bloods were obtained. The placenta delivered fairly promptly spontaneously [place]. It was normal with a 3-vessel cord. The cervix, vagina, rectum, and perineum were examined and found intact. The patient tolerated the delivery well and remained in the LDR for recovery. The baby remained with the mom. 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
[2020-07-04 04:00] VITALS: BP 134/65
[2020-07-04] MEDS: KETOROLAC 30 MG/ML VIAL IVP SCH (04:02)
--- NOTE | 2020-07-04 08:12 | Progress Note ---
Standard Progress Note Progress Notes/Assess & Plan Date Seen by a Provider: July 04, 2020 Time Seen by a Provider: 08:10 Progress/Assessment & Plan This patient is without complaint. She is ambulating, voiding, tolerating oral intake well and has good pain control. Patient is requesting discharge home. Vital Signs Date Time Temp Pulse Resp B/P (MAP) Pulse Ox O2 Delivery O2 Flow Rate FiO2 07/04/20 04:00 36.5 65 18 134/65 (88) 07/03/20 23:37 36.6 56 18 132/60 (84) 96 07/03/20 20:27 36.2 64 18 125/62 (83) 98 07/03/20 16:12 80 18 127/64 (85) 07/03/20 15:57 71 18 126/59 (81) 07/03/20 15:42 93 18 128/59 (82) 07/03/20 15:27 78 18 121/56 (77) 07/03/20 15:12 74 18 131/58 (82) 07/03/20 14:57 63 18 122/57 (78) 07/03/20 14:43 36.3 71 18 127/61 (83) 07/03/20 14:28 61 18 118/58 (78) 07/03/20 13:45 70 18 118/63 (81) 07/03/20 13:30 67 18 126/69 (88) 07/03/20 13:15 62 18 127/64 (85) 07/03/20 13:00 61 18 123/61 (81) 07/03/20 12:45 72 18 123/61 (81) 07/03/20 12:30 63 18 124/59 (80) 07/03/20 12:15 62 18 129/62 (84) 07/03/20 12:00 64 18 114/62 (79) 07/03/20 11:45 61 18 117/57 (77) 07/03/20 11:30 60 18 112/59 (76) 07/03/20 11:15 62 18 105/51 (69) 07/03/20 11:00 36.3 60 18 103/52 (69) 99 07/03/20 10:43 64 18 116/56 (76) 99 07/03/20 10:38 61 18 124/62 (82) 99 07/03/20 10:33 68 18 121/63 (82) 100 07/03/20 10:28 63 18 123/64 (83) 97 07/03/20 10:23 61 18 125/63 (83) 98 07/03/20 10:18 60 18 121/62 (81) 98 07/03/20 10:13 63 18 119/69 (86) 100 07/03/20 10:09 59 18 124/60 (81) 100 07/03/20 10:04 61 18 130/60 (83) 100 07/03/20 09:58 61 18 125/64 (84) 99 07/03/20 09:52 80 18 110/64 (79) 100 07/03/20 09:49 66 18 136/61 (86) 100 07/03/20 09:46 71 18 126/69 (88) 100 07/03/20 09:43 74 18 130/72 (91) 100 07/03/20 09:40 71 18 125/66 (85) 99 07/03/20 09:37 78 18 129/64 (85) 99 07/03/20 09:33 82 18 125/72 (89) 99 07/03/20 09:28 79 18 137/75 (95) 98 07/03/20 09:26 76 18 135/75 (95) 99 07/03/20 09:23 79 18 132/71 (91) 99 07/03/20 09:20 36.4 67 18 133/71 (91) 100 07/03/20 09:00 74 18 130/68 (88) 100 I & O 07/04/20 07:00 Intake Total 2500 ml Balance 2500 ml Vital signs are stable. Patient is afebrile Fundus is firm below the umbilicus and nontender. Extremities show no clubbing or cyanosis. There is no Homans' sign. Assessment and plan day #1 doing well. Plan is for routine convalescent care with discharge home as needed patient requests Final Diagnosis 38-week spontaneous vaginal delivery JAQUELINE GODDARD MD July 04, 2020 08:12
[2020-07-04] MEDS ORDERED: IBUPROFEN 600 MG (MOTRIN) TAB PO ONE (09:22)
[2020-07-04] MEDS ORDERED: IBUPROFEN 800 MG (MOTRIN) TAB PO ONE (09:26)
[2020-07-04] MEDS: DOCUSATE SODIUM 100 MG (COLACE) CAP PO SCH (09:31)
[2020-07-04 09:36] VITALS: BP 110/57
[2020-07-04 13:08] VITALS: BP 124/67
[2020-07-04] MEDS ORDERED: IBUPROFEN 800 MG (MOTRIN) TAB PO SCH (16:30)
== END 2020-07-04 16:10 | disposition home or self-care (01) | DRG 807 ==
LOC: LDRP 07:02
PROVIDERS: ADMIT Obstetrics & Gynecology; ATTEND Obstetrics & Gynecology
PROC: 10E0XZZ Delivery of Products of Conception, External Approach (ICD-10-PCS; principal; 2020-07-03)
PROC: 3E033VJ Introduction of Other Hormone into Peripheral Vein, Percutaneous Approach (ICD-10-PCS; 2020-07-03)
DX: O99.12 Other diseases of the blood and blood-forming organs and certain disorders involving the immune mechanism complicating childbirth (principal); Z37.0 Single live birth; O69.1XX0 Labor and delivery complicated by cord around neck, with compression, not applicable or unspecified; Z3A.38 38 weeks gestation of pregnancy
CPT/HCPCS: 36415; 85025